=== PATIENT | female | born 1950 | race African-American/Black ===

== ENCOUNTER 2017-04-05 10:37 | Emergency (ER) | payer MEDICARE ==
[~2017-04-05] VITALS: Ht 160 cm; Wt 100.0 kg
[2017-04-05 10:41] VITALS: Ht 160 cm; Wt 100.0 kg
[2017-04-05] MEDS ORDERED: AMLO5TAB4 PO (10:59)
[2017-04-05] MEDS ORDERED: BUSP10TA2 PO (11:00)
[2017-04-05] MEDS ORDERED: DONE10TA7 PO (11:03)
[2017-04-05] MEDS ORDERED: DOCU100C26 PO (11:03)
[2017-04-05] MEDS ORDERED: LORA1TAB PO (11:04)
[2017-04-05] MEDS ORDERED: FOLI-49 PO (11:04)
[2017-04-05] MEDS ORDERED: TRAZ150T65 PO (11:05)
[2017-04-05] MEDS ORDERED: PANT40TA3 PO (11:05)
[2017-04-05] MEDS ORDERED: METO100T13 PO (11:05)
[2017-04-05] MEDS ORDERED: VENL150T PO (11:06)
--- NOTE | 2017-04-05 11:07 | ERD ---
ER Documentation Chief Complaint Date/Time DATE: 04/05/17 TIME: 11:05 Chief Complaint [id number] FR [facility] C/O ANXIOUS MORE THAN USUSAL TODAY, HPI This is a 66-year-old female history of severe dementia, chronic anxiety who presents with anxiousness from [facility]. It appears per nursing and EMS reported that the patient has been more anxious than usual. The patient has been joking with medical staff upon arrival. The patient is a very limited historian given her dementia but has no complaints. She denies any fevers, chills, headache, chest pain or shortness of breath. She denies anxiety. ROS All systems reviewed and are negative except as per history of present illness. Medications Home Meds Reported Medications Lorazepam* (Lorazepam*) 1 Mg Tablet, 1 MG PO BID Y for ANXIETY, #30 TAB 04/05/17 Folic Acid* (Folic Acid*) 1 Mg Tablet, 1 MG PO DAILY, TAB 04/05/17 Donepezil* (Donepezil*) 10 Mg Tablet, 10 MG PO DAILY, #30 TAB 04/05/17 Docusate Sodium* (Doc-Q-Lace*) 100 Mg Capsule, 100 MG PO DAILY, CAP 04/05/17 Buspirone Hcl* (Buspirone Hcl*) 10 Mg Tab, 10 MG PO DAILY, TAB 04/05/17 Amlodipine Besylate* (Norvasc*) 5 Mg Tablet, 5 MG PO DAILY, TAB 04/05/17 FmHx Family History: No diabetes Physical Exam Vitals Vital Signs Date Time Temp Pulse Resp B/P Pulse Ox O2 Delivery O2 Flow Rate FiO2 04/05/17 10:41 97.8 86 18 134/59 100 Physical Exam General: Well developed, well nourished, no acute distress Head: Normocephalic, atraumatic. Eyes: Pupils equally reactive, EOM intact ENT: Moist mucous membranes Neck: Supple, no lymphadenopathy Respiratory: Lungs clear bilaterally, no distress Cardiovascular: RRR, no murmurs, rubs, or gallops Abdominal: Soft, non-tender, non-distended, no peritoneal signs : Deferred MSK: No edema, no unilateral swelling, 5/5 strength Neurologic: Alert and oriented to person but forgetful, appears to be at baseline, moving all extremities, normal speech, no focal weakness, no cerebellar signs Skin: No rash Psych: Anxious mood but consolable and directable Procedures/MDM The patient presents for anxiety however at this time the patient is resting comfortably, joking around with staff. The patient does have severe dementia which limits her history. However, based on nursing report and a phone call to Helen Mcmahon, her behavior at this point appears to be consistent with baseline. The patient has no signs or symptoms concerning for acute organic pathology, stroke, cardiac etiology. The patient is resting comfortably without signs of acute psychosis. She is not suicidal. The nurse caring for the patient spoke to the charge nurse at [facility], gave report on how the patient is currently. At this time I do not believe further workup or hospitalization is required. [facility] has accepted the patient back to their facility. We discussed follow up with the patient's primary care doctor within 24 to 48 hours as needed. We also discussed return to the emergency room for worsening symptoms or worsening condition. Outpatient referral: [None required] Discharge Medications: None required Departure Diagnosis: Primary Impression: Anxiety attack Additional Impression: Encephalopathy chronic Condition: Good Patient Instructions: Anxiety Reaction Referrals: [facility] YOU HAVE RECEIVED A MEDICAL SCREENING EXAM AND THE RESULTS INDICATE THAT YOU DO NOT HAVE A CONDITION THAT REQUIRES URGENT TREATMENT IN THE EMERGENCY DEPARTMENT. FURTHER EVALUATION AND TREATMENT OF YOUR CONDITION CAN WAIT UNTIL YOU ARE SEEN IN YOUR DOCTORS OFFICE WITHIN THE NEXT 1-2 DAYS. IT IS YOUR RESPONSIBILITY TO MAKE AN APPOINTMENT FOR FOLOW-UP CARE. IF YOU HAVE A PRIMARY DOCTOR --you should call your primary doctor and schedule an appointment IF YOU DO NOT HAVE A PRIMARY DOCTOR YOU CAN CALL OUR PHYSICIAN REFERRAL HOTLINE AT IF YOU CAN NOT AFFORD TO SEE A PHYSICIAN YOU CAN CHOSE FROM THE FOLLOWING [facility] [address] [facility] [address] [facility]. [facility] [address] [facility] [address] [facility] [address] [facility] [facility]. [address] [facility] YOU HAVE RECEIVED A MEDICAL SCREENING EXAM AND THE RESULTS INDICATE THAT YOU DO NOT HAVE A CONDITION THAT REQUIRES URGENT TREATMENT IN THE EMERGENCY DEPARTMENT. FURTHER EVALUATION AND TREATMENT OF YOUR CONDITION CAN WAIT UNTIL YOU ARE SEEN IN YOUR DOCTORS OFFICE WITHIN THE NEXT 1-2 DAYS. IT IS YOUR RESPONSIBILITY TO MAKE AN APPOINTMENT FOR FOLOW-UP CARE. IF YOU HAVE A PRIMARY DOCTOR --you should call your primary doctor and schedule and appointment IF YOU DO NOT HAVE A PRIMARY DOCTOR YOU CAN CALL OUR PHYSICIAN REFERRAL HOTLINE AT . IF YOU CAN NOT AFFORD TO SEE A PHYSICIAN YOU CAN CHOSE FROM THE FOLLOWING [facility] INSTITUTIONS: [facility] [address] [place] [address] [facility] [address] [place] [address] [facility] + [facility] [address] [place] [address] Additional Instructions: Call your primary care doctor TOMORROW for an appointment during the next 1 WEEK.Tell the stenographer secretary that you were referred from this facility.See the doctor sooner or return here if your condition worsens before your appointment time. DAVE MURPHY MD Apr 05, 2017 11:07
[2017-04-05 11:58] VITALS: BP 136/62; PULSE 62; RESP 16; TEMP 97.8
== END 2017-04-05 11:58 | disposition home or self-care (01) ==
LOC: E/R 10:37
DX: F41.1 Generalized anxiety disorder (principal); G93.40 Encephalopathy, unspecified
CPT/HCPCS: 99283